=== PATIENT | female | born 1940 | race Caucasian/White ===

== ENCOUNTER → 2017-02-07 10:31 | Outpatient (CLI) | payer MEDICARE, BC ==
[2014-12-27 10:40] VITALS: BMI 35.8
[~2017-02-07 10:31] MED LIST: AVAPRO75 MG PO; CARDIZEM30 MG PO; EVISTA60 MG; IMODIUM A-D2 MG PO; LOPID600 MG; MESTINON60 MG PO; MULTI-DAY VITAM1 TAB
== END | disposition home or self-care (01) ==
LOC: D.MRI 10:31
DX: M54.5 Low back pain (principal)

== ENCOUNTER → 2017-02-25 15:53 | Outpatient (CLI) | payer MEDICARE, BC ==
[2014-12-27 10:40] VITALS: BMI 35.8
== END | disposition home or self-care (01) ==
LOC: D.MAMMO 09:00
DX: Z12.31 Encounter for screening mammogram for malignant neoplasm of breast (principal)

== ENCOUNTER → 2018-03-31 07:58 | Outpatient (CLI) | payer MEDICARE, BC ==
[2014-12-27 10:40] VITALS: BMI 35.8
== END | disposition home or self-care (01) ==
LOC: D.MAMMO 03-30 09:30
DX: Z12.31 Encounter for screening mammogram for malignant neoplasm of breast (principal)

== ENCOUNTER 2018-04-13 10:59 | Outpatient (CLI) | payer MEDICARE, BC ==
[~2018-04-13] VITALS: Ht 165.1 cm; Wt 97.7 kg
[2018-04-13 11:31] VITALS: BP 122/78; Ht 165.1 cm; Wt 97.7 kg
== END 2018-04-13 11:35 | disposition home or self-care (01) ==
LOC: D.OPS 10:59
DX: M81.0 Age-related osteoporosis without current pathological fracture (principal)